=== PATIENT | female | born 1985 | race Caucasian/White ===

== ENCOUNTER 2020-11-01 10:49 | Emergency (ER) | payer OTHER ==
[2020-11-01 11:53] LABS: BASOPHIL 0.5 % (0-2); EOSINOPHIL 0.5 % (0-5); HCT 39.7 % (37.0-47.0); HGB 13.6 g/dl (12.5-16.0); LYMPHOCYTE 15.7 % (15-48); MCH 32.2 pg (25.0-31.0); MCHC 34.3 g/dL (32.0-36.0); MCV 94.1 fL (78.0-100.0); MONOCYTE 5.4 % (0-12); MPV 10.3 fL (6.0-9.5); NEUTROPHIL 77.7 % (41-80); NRBC 0; PLT 223 K/uL (150-400); RBC 4.22 M/uL (4.20-5.40); RDW 12.3 % (11.5-14.0); WBC 8.8 K/uL (4.0-10.5)
[2020-11-01 12:15] LABS: BILIRUBIN NEGATIVE (NEGATIVE); BLOOD NEGATIVE Ery/uL (NEGATIVE); CLARITY CLEAR (CLEAR); COLOR YELLOW (YELLOW); GLUCOSE (U) NORMAL (NORMAL); LEUKOCYTES NEGATIVE Leu/uL (NEGATIVE); NITRITE NEGATIVE (NEGATIVE); PROTEIN NEGATIVE (NEGATIVE); SPECIFIC GRAVITY 1.015 (1.001-1.030); UROBILINOGEN 0.2 mg/dL (0.2-1.0); pH 7.5 (5.0-9.0)
[2020-11-01 12:17] LABS: CREATININE 0.77 mg/dL (0.51-0.95); POTASSIUM 4.1 mmol/L (3.5-5.1)
== END 2020-11-01 12:46 | disposition home or self-care (01) ==
LOC: FER 10:49
PROVIDERS: Emergency Medicine
DX: R00.2 Palpitations (principal)
CPT/HCPCS: 36415; 71045; 80048; 81003; 84443; 85025; 93005